=== PATIENT | female | born 1975 | race Caucasian/White ===

== ENCOUNTER 2020-10-14 16:40 | Outpatient (CLI) | payer MEDICAID, SELFPAY ==
--- NOTE | ~2020-10-14 | MM_ITS ---
EXAMINATION: MM screening deyvi BI w ruby HISTORY: Screening mammogram TECHNIQUE: Craniocaudal and mediolateral oblique 3-D tomosynthesis images were obtained and synthetic 2-D images were generated. CAD analysis was submitted and interpreted. COMPARISON: No prior mammogram is available for comparison at this institution. BREAST PARENCHYMAL COMPOSITION: The breasts are almost entirely fatty. FINDINGS: History of bilateral breast reduction surgery. There is no evidence of suspicious mass, gage cification, or architectural distortion to suggest malignancy in either breast. There has been no shonna picious interval change. IMPRESSION: 1. No mammographic evidence of malignancy. 2. Recommend routine screening mammography in one year. BI-RADS Category 1: Negative Reviewed, dictated and finalized at location A.
== END 2020-10-14 16:41 | disposition home or self-care (01) ==
LOC: ANHIMG 16:43
PROVIDERS: PCP Nurse Practitioner Family; Visit Provider Nurse Practitioner Family
DX: Z12.31 Encounter for screening mammogram for malignant neoplasm of breast (principal)
CPT/HCPCS: 77063; 77067

== ENCOUNTER 2022-10-20 13:03 | Outpatient (CLI) | payer BC, MEDICAID, SELFPAY ==
--- NOTE | 2022-10-20 14:29 | ECG_ITS ---
Measurements Intervals [place] Rate: 79 P: -5 SC: 180 QRS: 31 QRSD: 73 T: 9 QT: 391 QTc: 449 Interpretive Statements SINUS RHYTHM ATRIAL TRIPLET AND ATRIAL PREMATURE COMPLEX LOW QRS VOLTAGE IN PRECORDIAL LEADS BORDERLINE ST ABNORMALITY- ANT/INF LEADS BASELINE ARTIFACT- I, II, AVR, AVL ABNORMAL ECG NO PREVIOUS ECG AVAILABLE FOR COMPARISON Electronically Signed On 10-20-2022 15:55:10 CDT by Ervin Strickland D.O.
[2022-10-20 15:01] LABS: Alanine Aminotransferase 25 U/L (6-35); Alkaline Phosphatase 85 U/L (38-126); Anion Gap 3 mmol/L (8-16); Aspartate Amino Transferase 27 U/L (14-36); Bilirubin,Total 0.4 mg/dL (0.2-1.3); Blood Urea Nitrogen 11 mg/dL (7-17); Calcium 8.7 mg/dL (8.4-10.2); Carbon Dioxide 35 mmol/L (22-30); Chloride 100 mmol/L (98-107); Estimated Glomerular Filt Rate 59; Glucose 93 mg/dL (65-110); Potassium 3.7 mmol/L (3.4-5.0); Sodium 138 mmol/L (137-145)
== END 2022-10-20 13:04 | disposition home or self-care (01) ==
PROVIDERS: PCP Nurse Practitioner Family; Visit Provider Obstetrics & Gynecology
DX: I10 Essential (primary) hypertension (principal); D25.9 Leiomyoma of uterus, unspecified; Z01.818 Encounter for other preprocedural examination; R94.31 Abnormal electrocardiogram [ECG] [EKG]
CPT/HCPCS: 36415; 80053; 86850; 86900; 86901; 93005

== ENCOUNTER 2022-10-26 01:37 | Day surgery (SDC) | payer BC, MEDICAID, SELFPAY ==
[2022-10-17 12:01] VITALS: BMI 50.5
--- NOTE | 2022-10-17 12:06 | PC.NURSE ---
Report to the Outpatient Waiting Room, entrance under the green pavilion located off [facility], at time 8:00 on date 10/26/22. Planned Procedure Time: 11:00. Time changes happen often and if your time is changed the preop area will call you the afternoon before. - You and your visitor will be asked to self-screen and do not enter if you have any COVID symptoms. - A mask is optional within the hospital at this time. Patients may have clear liquids (water, carbonated beverages, clear teas, apple juice) until 3 hours prior to surgery (7:00) with a maximum of 20 ounces. - No food from midnight until time of surgery Take the following medications with a SIP of water the morning of surgery: ESCITALOPRAM, LEVOTHYROXINE, METOPROLOL, TRAMADOL IF NEEDED DO NOT STOP ANY OF YOUR OTHER PRESCRIPTION MEDICATIONS PRIOR TO SURGERY ?EXCEPT THE FOLLOWING Medications to discontinue per physician: VITAMINS Date to take last dose: 10/20/[address] LOCK REGARDING MELOXICAM Please no make-up, nail kyrgyz, hairspray, perfume, deodorant, or body powder the day of surgery. No jewelry (including any body piercings) or valuables the day of surgery, leave them at home. Please take a shower or bath the night before, or the morning of, surgery with an antibacterial soap. Wear comfortable, loose fitting clothing. - Jewelry must be removed prior to entering the operating room. Rings and piercings that are not removed may be cut off. - The hospital will not accept responsibility for valuables. - Please leave all valuables, including medications, at home the day of surgery. If you are going home after surgery, a licensed xm1 tank driver must drive you home. - NO public transportation without another adult if you receive anesthesia. - We recommend that an adult stay with you for 24 hours following discharge. - We also recommend that you do not drive, make important decision, drink alcoholic beverages, or take any drugs that were not prescribed by your health care provider for at least 24 hours after your discharge time. Follow any additional instructions given to you from your surgeon. If you or anyone in your household have experienced Covid symptoms in the past week, please notify your surgeon or the nurse liaison at the phone number below for possible testing. Telephone instructions given to PT - CLAUDIO BOTELLO and asked if any additional questions and then verbalized understanding. Patient advised to call surgeon office or pre surgery nurse liaison [phone] if any additional questions.
[2022-10-26] VITALS (14 sets, daily range): BP systolic 118–145; BP diastolic 72–86; PULSE 76–84; RESP 12–16; TEMP 36.7–37.6; O2SAT 96–99
[2022-10-26] MEDS: ACETAMINOPHEN 500 MG TABLET 1000 MG PO (08:32)
[2022-10-26] MEDS: LACTATED RINGERS 1,000 ML 30 ML IV CONT ×2 (08:32→14:25)
[2022-10-26] MEDS: KETOROLAC 15 MG/ML VIAL (*BKC) IV PUSH (08:36)
--- NOTE | 2022-10-26 09:46 | WPDANESEPPF ---
Anes - Initial Pre Proc Eval Procedure: Operation Date: 10/26/22 10:00 Proposed Procedures p Total Laparoscopic Hysterectomy with Bilateral Salpingo-oophorectomy - Marcelina Sarkar MD Date/Time: 10/26/22 09:46 Surgeon: Marcelina Sarkar MD Pre Op Diagnosis: Uterine Leimyoma Patient Data Age: 47 Gender: F Height: 1.6 m Weight: 132 kg Last Vital Signs Temp 98.3 F 10/26/22 08:09 Pulse 78 10/26/22 08:09 Resp 16 10/26/22 08:09 BP 140/78 10/26/22 08:09 Pulse Ox 98 10/26/22 08:09 O2 Del Method Room Air 10/26/22 08:09 Allergies Allergy/AdvReac Type Severity Reaction Status Date / Time adhesive tape Allergy Mild Rash Verified 10/26/22 07:55 Penicillins Allergy Unknown Yeast Verified 10/26/22 07:55 Infection Home Medications Medication Instructions Recorded Confirmed Type levothyroxine 200 mcg tablet 200 mcg PO DAILY 05/16/19 10/26/22 History metoprolol tartrate 25 mg tablet 25 mg PO DAILY 05/16/19 10/26/22 History omeprazole 20 mg capsule,delayed 20 mg PO DAILY 05/16/19 10/26/22 History release furosemide 40 mg tablet (Lasix) 40 mg PO QAM 05/17/19 10/26/22 History escitalopram oxalate 20 mg tablet 20 mg PO DAILY 12/17/20 10/26/22 History (Lexapro) tramadol 50 mg tablet 50 mg PO Q8H PRN pain #30 tabs 08/26/21 10/26/22 Rx potassium chloride 20 mEq oral 40 meq PO DAILY 02/14/22 10/26/22 History packet meloxicam 15 mg tablet See Rx Instructions .Route 10/13/22 10/26/22 Rx .COMPLEX #30 tabs atorvastatin 20 mg tablet 20 mg PO HS 10/17/22 10/26/22 History cholecalciferol (vitamin D3) 125 125 mcg PO DAILY 10/17/22 10/26/22 History mcg (5,000 unit) tablet (Vitamin D3) Patient hx anesthesia problems: none Family hx anesthesia problems: none Results Review: All pre-operative results and documents have been reviewed as part of the pre-operative evaluation. [facility] Past Medical History Medical History Abnormality of heart beat Anxiety Arthritis of foot, degenerative BMI greater than 40 Carpal tunnel syndrome Degenerative arthritis of right foot Effusion, left knee GERD (gastroesophageal reflux disease) Heart palpitations Hypertension Hypothyroid Osteoarthritis Osteoporosis Rheumatoid arthritis Rheumatoid arthritis flare Right knee DJD Smoking Swelling of lower extremity Surgical History Surgical History History of carpal tunnel release Hx of breast reduction, elective Family History Family History Other Arthritis Heart disease Hypertension Social History Social History Smoking packs per day: 1 Smoking cigarettes per day: 20.0 Years smoked: 16 Smoking pack-years: 16.00 Smoking status: Current every day smoker Tobacco type: cigarettes Second hand tobacco smoke exposure: Yes Alcohol intake: current Drinks per week: 3 Alcohol use details: 10/MONTH Substance use: never Substance use type: does not use Living arrangements: with family Occupation/Education: occupation Additional occupation/education comments: [employer] Gender identity (if verbalized by the patient): Female Spiritual care concerns: No Anes - Eval Final PreProcedure Day of Procedure 10/26/22 09:46 Patient weight: super morbidly obese Heart: regular rate and rhythm Lungs: clear to auscultation Airway: Mallampati scale class III Neurological: alert and oriented Last oral intake: >/= 8 hours ASA classification: IV Emergent: no Anesthetic plan: proceed Anesthesia type and monitoring: general ETT and standard monitoring Results Review: All pre-operative results and documents have been reviewed as part of the pre-operative evaluation. Informed Consent: The patient's anesthetic plan and its attendant risks and benefits were discussed with the pa
--- NOTE | 2022-10-26 10:51 | WPDHPUPDATE1 ---
History and Physical Update Update Date/Time: 10/26/22 10:51 History and Physical has been reviewed, including an updated exam of the patient. There are NO changes in the patient's condition. Risks, benefits, and alternatives have been discussed and questions answered. Patient agrees to proceed with procedure.
[2022-10-26] MEDS: ceFAZolin 3 GM/D5W 100 ML 100 ML IVPB (11:27)
[2022-10-26] MEDS: ceFAZolin SODIUM 1 GM VIAL (12:20)
--- NOTE | 2022-10-26 14:30 | W.PM.PROC2 ---
Procedure Note - Detailed Date of Procedure 10/26/22 Pre-op Diagnosis Uterine Leimyoma, pelvic pain Post-op Diagnosis Same Procedure Performed Total laparoscopic hysterectomy and bilateral salpingo-oophorectomy. Surgeon Marcelina Sarkar MD Anesthesia General Indications heavy bleeding, pelvic pain Findings Large fibroid uterus, normal-appearing tubes and ovaries Description of Procedure This patient was taken to the operating room. She was prepped and draped in the dorsal lithotomy position after induction of general anesthesia. The uterine manipulator and Deidre cup were placed. This was done with a speculum and tenaculum. The speculum was placed. The cervix was grasped with a tenaculum. The stay sutures were placed at 3 and 9:00 a.m.. The stay sutures of 0 Vicryl were brought through the appropriately sized Deidre cup. The tip of the EDDIE manipulator was placed in the intrauterine cavity. The cup was slid into place around the cervix and into the fornices. It was locked into place. The sutures were then wrapped around the handle and tied under tension. A 5 mm skin incision was made in the left upper quadrant the abdomen. A 5 mm trocar was inserted into the intrauterine cavity under direct visualization of the scope. Pneumoperitoneum was achieved. A left lower quadrant 11 mm incision was made with scalpel. An 11 mm trocar was inserted into the anterior abdominal cavity under direct visualization the scope. A 5 mm infraumbilical incision was made with a scalpel and a 5 mm trocar was inserted the intra-abdominal cavity under direct visualization of the scope. Bilateral ureteral lysis was performed. This was done from the pelvic brim down to the uterine artery. This was done with careful dissection using sharp and blunt dissection. The infundibulopelvic ligaments were isolated after identification of the ureters bilaterally. These infundibulopelvic ligaments were cauterized and transected with LigaSure cautery. The para ovarian tissue was cauterized and transected with LigaSure cautery bilaterally. Moving around the ovary into the broad ligament the tissue was cauterized transected with LigaSure cautery. The round ligaments were cauterized transected with LigaSure cautery this was all done in a bilateral fashion. In a stepwise fashion along the lateral aspects of the uterus the round ligament and broad ligaments were cauterized transected down to the level of the uterine arteries. A bladder flap was created in the bladder was moved distally to the end of the cervix and over the Deidre cup. The bilateral uterine arteries were cauterized and transected. Colpotomy was then performed. In a circumferential fashion the vagina was transected using unipolar cautery. The incision was made down on the Deidre cup. The uterus, cervix, fallopian tubes and ovaries were taken out through the vagina. A pneumo occluder was placed in the vagina. The vaginal cuff was closed with a 0 V lock suture in a running fashion. The pelvis was irrigated with copious amounts antibiotic irrigation. The ureters were again examined and found to be intact and flowing freely under the uterine arteries into the bladder. The bladder was intact. It was examined directly. The vagina was irrigated with Betadine solution after removal of the Pneumo occluder. The patient was taken to recovery room. She was stable condition. Sponge lap and needle counts were correct x2. Estimated Blood Loss 275 Drains Yes Packing No Pathology Yes Complications No immediate complications Condition Stable Disposition Floor
[2022-10-26] MEDS: fentaNYL CITRATE INJ (*CRX) 100 MCG/2 ML VIAL 25 MCG IV PUSH ×2 (15:11→15:58)
[2022-10-26] MEDS: KETOROLAC 30 MG/ML VIAL (*BKC) IV PUSH (17:15)
[2022-10-26] MEDS: DEXTROSE 5%/0.45% SOD CHL 1,000 ML 125 ML IV CONT (17:15)
[2022-10-26] MEDS: ATORVASTATIN 20 MG TABLET PO (21:22)
[2022-10-26] MEDS: HYDROcodone/acetaminophen (*CRX) 5-325 MG TABLET 1 TAB PO (21:22)
[2022-10-27 05:00] VITALS: BP 106/66; PULSE 79; RESP 14; TEMP 36.7; O2SAT 97
[2022-10-27] MEDS: HYDROcodone/acetaminophen (*CRX) 5-325 MG TABLET 1 TAB PO ×2 (05:08→09:32)
[2022-10-27] MEDS: LEVOTHYROXINE SODIUM 100 MCG TABLET 200 MCG PO (07:05)
[2022-10-27 08:00] VITALS: BP 112/55; PULSE 84; RESP 18; TEMP 37.4; O2SAT 94
[2022-10-27] MEDS: CHOLECALCIFEROL 1,000 UNITS TABLET 5000 UNITS PO (08:27)
[2022-10-27 08:28] VITALS: PULSE 84
[2022-10-27] MEDS: FUROSEMIDE 40 MG TABLET PO (08:28)
[2022-10-27] MEDS: METOPROLOL TARTRATE 25 MG TABLET PO (08:28)
[2022-10-27] MEDS: ESCITALOPRAM OXALATE 10 MG TABLET 20 MG PO (08:28)
[2022-10-27] MEDS: PANTOPRAZOLE 40 MG TABLET PO (08:28)
[2022-10-27] MEDS: POTASSIUM CHLORIDE 20 MEQ PACKET (FOR LIQUID) 40 MEQ PO (08:29)
--- NOTE | 2022-10-27 09:19 | PM.GYNPNOP ---
SENIOR APPLICATIONS ENGINEER - A/P Postoperative Procedures: Procedures Operation Date: 10/26/22 10:00 Actual Procedure Side Surgeon p Total Laparoscopic Hysterectomy with Bilateral Salpingo-oophorectomy Bilateral Marcelina Sarkar MD Postoperative day: 1 Postoperative status: doing well Postoperative plan: see orders Time Spent With Patient Time: Total time spent is greater than 50% in coordination of care (as documented) at patient's floor/unit and/or counseling patient: Time with patient: less than 15 minutes SENIOR APPLICATIONS ENGINEER- PN:Subj Post-Op Subjective Date/time seen: 10/27/22 09:19 Subjective: patient reports feeling better, patient has no complaints and pain is well controlled Exam Const: General: healthy appearing, comfortable and no acute distress Resp: Auscultation: clear to auscultation bilaterally, no rales, no rhonchi and no wheezes Cardio: Rate: regular rate Heart sounds: no click, no murmurs and no rubs GI: Inspection: non-distended Auscultation: normal bowel sounds Extrem: General: normal to inspection, no pedal edema and no calf tenderness SENIOR APPLICATIONS ENGINEER - PN: Obj Data Vital Signs Vital Signs: Vital Signs - 24 hr 10/26/22 14:25 10/26/22 14:40 10/26/22 14:55 Temperature 99.4 F Pulse Rate 84 79 78 Respiratory Rate 15 12 12 Blood Pressure 118/80 128/81 131/81 Pulse Oximetry 96 97 98 Oxygen Delivery Simple Face Mask Simple Face Mask Nasal Cannula Oxygen Flow Rate 8 8 2 10/26/22 15:10 10/26/22 15:25 10/26/22 15:40 Temperature Pulse Rate 83 80 80 Respiratory Rate 12 12 12 Blood Pressure 122/79 127/80 131/80 Pulse Oximetry 97 97 97 Oxygen Delivery Nasal Cannula Nasal Cannula Nasal Cannula Oxygen Flow Rate 2 2 2 10/26/22 15:55 10/26/22 16:10 10/26/22 16:25 Temperature Pulse Rate 80 81 78 Respiratory Rate 12 12 12 Blood Pressure 139/83 138/82 129/86 Pulse Oximetry 98 99 99 Oxygen Delivery Nasal Cannula Nasal Cannula Nasal Cannula Oxygen Flow Rate 2 2 2 10/26/22 16:40 10/26/22 16:55 10/26/22 16:55 Temperature 98.0 F Pulse Rate 81 79 79 Respiratory Rate 12 14 14 Blood Pressure 133/80 124/72 Pulse Oximetry 97 98 98 Oxygen Delivery Nasal Cannula Nasal Cannula Oxygen Flow Rate 2 2 10/26/22 20:00 10/26/22 20:00 10/26/22 23:00 Temperature 98.3 F 99.7 F H Pulse Rate 84 84 76 Respiratory Rate 14 14 16 Blood Pressure 145/84 H 119/84 Pulse Oximetry 97 97 98 Oxygen Delivery Nasal Cannula Oxygen Flow Rate 2 10/27/22 05:00 10/27/22 08:28 Temperature 98.1 F Pulse Rate 79 84 Respiratory Rate 14 Blood Pressure 106/66 Pulse Oximetry 97 Oxygen Delivery Oxygen Flow Rate Intake/Output Intake/Output: Intake & Output 10/24/22 10/25/22 10/26/22 10/27/22 23:59 23:59 23:59 23:59 Intake Total 780 1000 Output Total 725 1300 Balance 55 -300 Meds/Results Medications: Active Medications Generic Name Dose Route Start Last Admin Trade Name Freq PRN Reason Stop Dose Admin Hydrocodone Bitart/Acetaminophen 1 tab 10/26/22 16:43 10/27/22 05:08 Hydrocodone/Acetaminophen (*Crx) 5-325 Mg Tablet PO 1 tab Q3H PRN Administration Pain Rated 5 or Less Hydrocodone Bitart/Acetaminophen 1 tab 10/26/22 16:43 Hydrocodone/Acetaminophen (*Crx) 10-325 Mg Tablet PO Q3H PRN Pain Rated 6 or Greater Atorvastatin Calcium 20 mg 10/26/22 21:00 10/26/22 21:22 Atorvastatin 20 Mg Tablet PO 20 mg HS DANIEL Administration Escitalopram Oxalate 20 mg 10/27/22 09:00 10/27/22 08:28 Escitalopram Oxalate 10 Mg Tablet PO 20 mg DAILY DANIEL Administration Furosemide 40 mg 10/27/22 09:00 10/27/22 08:28 Furosemide 40 Mg Tablet PO 40 mg QAM DANIEL Administration Dextrose/Sodium Chloride 1,000 mls @ 125 mls/hr 10/26/22 16:43 10/27/22 06:28 Dextrose 5% Sodium Chloride 0.45% IV CONT Not Given .Q8H DANIEL Ibuprofen 600 mg 10/26/22 16:43 Ibuprofen 600 Mg Tablet PO Q6H PRN Cramping Ketorolac Tromethamine 30 mg 10/26/22 16:43 10/26/22
[2022-10-27] MEDS: IBUPROFEN 600 MG TABLET PO (09:32)
== END 2022-10-27 09:48 | disposition home or self-care (01) ==
LOC: ANHSURGERY 07:37 → ANHOB2 16:55
PROVIDERS: PCP Nurse Practitioner Family; Visit Provider Obstetrics & Gynecology
PROC: 0UT9FZZ Resection of Uterus, Via Natural or Artificial Opening With Percutaneous Endoscopic Assistance (ICD-10-PCS; CPT 58573; principal; 2022-10-26 10:00)
DX: D25.1 Intramural leiomyoma of uterus (principal); I10 Essential (primary) hypertension; R10.2 Pelvic and perineal pain; K21.9 Gastro-esophageal reflux disease without esophagitis; E03.9 Hypothyroidism, unspecified; F41.9 Anxiety disorder, unspecified; M81.0 Age-related osteoporosis without current pathological fracture; M06.9 Rheumatoid arthritis, unspecified; Z79.891 Long term (current) use of opiate analgesic; F17.210 Nicotine dependence, cigarettes, uncomplicated; E66.01 Morbid (severe) obesity due to excess calories; Z68.43 Body mass index [BMI] 50.0-59.9, adult
CPT/HCPCS: 58573; 88307; 99199; A9270; J0690; J1100; J1885; J2250; J2405; J2704; J2710; J3010; J7030; J7120

== ENCOUNTER 2023-03-20 12:18 | Outpatient (CLI) | payer BC, OTHER, SELFPAY ==
--- NOTE | ~2023-03-20 | MMUS_ITS ---
EXAMINATION: MM diagnostic deyvi BI w ruby, US breast RT limited HISTORY: History of right breast lump along the inframammary fold adjacent to breast reduction skin l ine. TECHNIQUE: Additional 3-D tomosynthesis images of the breasts were performed and synthetic 2-D images were generated. CAD analysis was submitted and interpreted. High resolution Limited right breast ult rasound was performed. COMPARISON: Comparison to multiple prior studies sequentially, with oldest reviewed study dated 10/2020. BREAST PARENCHYMAL COMPOSITION: Breast composed of scattered areas of fibroglandular density FINDINGS: MAMMOGRAPHIC FINDINGS: There are no suspicious masses, calcifications or architectural distortion in either breast to sugges t malignancy. ULTRASOUND: Limited right breast ultrasound: In the area of palpable concern 11 cm from the nipple, there is a rodriguez perficial lymph node measuring 1.3 cm corresponding to this area. No suspicious masses to suggest mal ignancy. IMPRESSION: 1. No evidence for malignancy in either breast. Benign finding of the right breast in the area of pal pable concern. 2. Routine yearly screening mammogram and regular clinical breast examination are recommended. BI-RADS Category 2: Benign finding(s). Reviewed, dictated and finalized at location A. DING SPECIALIST IMPRESSION: 1. No evidence for malignancy in either breast. Benign finding of the right navneet ast in the area of palpable concern. 2. Routine yearly screening mammogram and regular clinical breast examination a re recommended. BI-RADS Category 2: Benign finding(s).
== END 2023-03-20 12:19 | disposition home or self-care (01) ==
PROVIDERS: PCP Nurse Practitioner Family; Visit Provider Nurse Practitioner Obstetrics & Gynecology
DX: Z12.31 Encounter for screening mammogram for malignant neoplasm of breast (principal)
CPT/HCPCS: 76642; 77062; 77066; G0279

== ENCOUNTER 2023-07-04 15:44 | Outpatient (CLI) | payer OTHER, SELFPAY ==
--- NOTE | 2023-07-04 | ECHO_ITS ---
Patient Info Name: Eveline Bo Age: 48 years : 1975 Gender: Female Ht: 63 in Wt: 312 lbs BSA: 2.60 m2 HR: 72 bpm BP: 143 / 95 mmHg Heart Rhythm: Sinus Rhythm Technical Quality: Fair Exam Date: 07/04/2023 4:06 PM Exam Location: Echo Lab Patient Status: Outpatient Admit Date: 07/04/2023 Staff Ordering Physician: KatiaAlyssa NP Cleaner Furniture: Kailey Jimenez RDCS Attending Provider: Moo, Alyssa Blue NP Referring Physician: Katia PARISH; Exam Type: CA echo dop color flow w con Study Info Indications - Peripheral [place] I10 - Essential (primary) hypertension Complete two-dimensional, color flow and Doppler transthoracic echocardiogram is performed with contrast to opacify the left ventricle and to improve the deliniation of the left ventricle endocardial borders. Contrast/Agitated Saline Contrast/Ag. Saline: Definity Amount: 3.00 ml Existing IV Access: Yes New IV Access: Right Site Condition: IV removed Summary 1. Left ventricular chamber dimension is normal. 2. Left ventricular systolic function is normal, estimated at 65-70%. 3. There is mildly increased left ventricular wall thickness. 4. The left ventricular diastolic function is grade I diastolic dysfunction. 5. There is mild mitral valve regurgitation. 6. Left atrial chamber dimension is mildly enlarged. Left Ventricle Left ventricular chamber dimension is normal. Left ventricular systolic function is normal, estimated at 65-70%. There is mildly increased left ventricular wall thickness. The left ventricular diastolic function is grade I diastolic dysfunction. Right Ventricle Right ventricular chamber dimension is normal. Right ventricular systolic function is normal. Left Atria Left atrial chamber dimension is mildly enlarged. Right Atria Right atrial chamber dimension is normal. Atrial Septum Intact interatrial septum visualized by color flow imaging. Aortic Valve The aortic valve is probable trileaflet. There is mild aortic valve sclerosis. There is no aortic valve stenosis. There is trace aortic valve regurgitation. Pulmonic Valve The pulmonic valve is normal. There is no pulmonic valve stenosis. There is trace pulmonic regurgitation. Mitral Valve The mitral valve has normal leaflets. There is no mitral valve stenosis. There is mild mitral valve regurgitation. Tricuspid Valve The tricuspid valve leaflets are normal. There is no significant tricuspid valve stenosis. There is trace tricuspid valve regurgitation. Pericardium/Pleural The pericardium appears normal. There is no pericardial effusion. Inferior Vena Cava Normal inferior vena cava with >50% collapse upon inspiration consistent with normal right atrial pressure, 10 mmHg. Aorta The aortic root size at the sinus of Valsalva is normal. Left Ventricular Outflow Tract Name Value Normal LVOT 2D LVOT Diameter 2.12 cm LVOT Doppler LVOT Peak Gradient 7 mmHg LVOT Mean Gradient 4 mmHg LVOT VTI 27.52 cm LVOT VTI/AV VTI Ratio 0.96 LVOT Stroke Volume
[2023-07-04] MEDS: PERFLUTREN LIPID MICROSPHERES 1.5 ML VIAL DILUTED TO 10 ML TOTAL VOLUME IV PUSH (17:00)
--- NOTE | 2023-07-04 17:10 | IVDEFINITY ---
Prior to administration of IV Definity the patient was educated on the risks and benefits of the imaging enhancing agent including potential adverse side effects. The patient verbalized understanding. Allergies were verified. No exclusion criteria were identified and at least one of the following inclusion criteria were met: 1) physician request, 2) patient technically difficult to image (per the [place] [employer] guidelines of two or more segments not discernable within the apical view), or 3) questionable left ventricular function. ?
== END 2023-07-04 15:45 | disposition home or self-care (01) ==
LOC: ANHCARD 15:46
PROVIDERS: PCP Nurse Practitioner Family; Visit Provider Nurse Practitioner Family
DX: R60.0 Localized edema (principal); I10 Essential (primary) hypertension
CPT/HCPCS: C8929; Q9957